=== PATIENT | male | born 1965 | race Caucasian/White ===

== ENCOUNTER 2017-01-03 04:46 | Emergency (ER) | payer MEDICAID ==
[~2017-01-03] VITALS: Ht 182.9 cm; Wt 60.0 kg
[2017-01-03 04:49] VITALS: Ht 182.9 cm; Wt 60.0 kg
[2017-01-03] MEDS ORDERED: HYDROCODONE/APAP (5/325) TAB PO ONE (06:30)
--- NOTE | 2017-01-03 07:00 | ERD ---
ER Documentation Chief Complaint Date/Time DATE: 01/03/17 TIME: 06:59 Chief Complaint PATTERSON X2 DAYS. +NAUSEA AND DIZZINESS HPI This a 51-year-old male who presents to the emergency department today for headache for the past 2 days. Patient states he also feels some dizziness. States that he has had these intermittent headaches for the past 2 years but has been worse over the past couple of days. States that he was given sumatriptan 2 years ago at all of you but was never diagnosed with migraines. Denies any fevers or chills, nausea. Denies any light sensitivity however he states he has sensitivity to noise. States the pain is located on the left side of his head. ROS All systems reviewed and are negative except as per history of present illness. Medications Home Meds Active Scripts Naproxen* (Naprosyn*) 500 Mg Tablet, 500 MG PO BID Y for PAIN AND/OR INFLAMMATION, #30 TAB Prov:MATTEO SUN PA-C 01/03/17 Hydrocodone/Acetaminophen (Sigel 5-325 Tablet) 1 Each Tablet, 1 TAB PO Q6H Y for PAIN, #10 TAB Prov:MATTEO SUN PA-C 01/03/17 Allergies Allergies: Coded Allergies: No Known Allergy (Unverified , 01/03/17) PMhx/Soc Medical and Surgical Hx: pt denies Medical Hx, pt denies Surgical Hx Hx Alcohol Use: Yes Hx Substance Use: No Hx Tobacco Use: Yes Smoking Status: Current every day smoker Physical Exam Vitals Vital Signs Date Time Temp Pulse Resp B/P Pulse Ox O2 Delivery O2 Flow Rate FiO2 01/03/17 04:49 98.0 76 20 142/62 98 Physical Exam Const: No acute distress Head: Atraumatic Eyes: Normal Conjunctiva. PERRLA. EOM intact. ENT: Normal External Ears, Nose and Mouth. Neck: Full range of motion..~ No meningismus. Resp: Clear to auscultation bilaterally Cardio: Regular rate and rhythm, no murmurs Skin: No petechiae or rashes Back: No midline or flank tenderness Ext: No cyanosis, or edema Neur: Awake and alert. No focal neurologic deficits. No gait ataxia. Psych: Normal Mood and Affect Results 24 hrs Current Medications Medications (Trade) Dose Ordered Sig/Malcom Route PRN Reason Start Time Stop Time Status Last Admin Dose Admin Acetaminophen/ Hydrocodone Bitart (Sigel (5/325)) 1 tab ONCE ONCE PO 01/03/17 06:30 01/03/17 06:31 DC 01/03/17 06:37 Ketorolac Tromethamine 30 mg 30 mg ONCE STAT IV 01/03/17 07:27 01/03/17 07:29 DC 01/03/17 07:41 Sodium Chloride (NS) 1,000 ml @ 1,000 mls/hr Q1H ONCE IV 01/03/17 07:30 01/03/17 08:29 DC 01/03/17 07:40 Diphenhydramine HCl (Benadryl) 25 mg ONCE ONCE IV 01/03/17 07:30 01/03/17 07:31 DC 01/03/17 07:40 Metoclopramide HCl (Reglan) 10 mg ONCE ONCE IV 01/03/17 07:30 01/03/17 07:31 DC 01/03/17 07:40 DIAGNOSTIC IMAGING REPORT Patient: BRAYAN BARBOSA : 1965 Age: 51 Sex: M MR #: [id number] DOS: 01/03/17 0000 Ordering MD: MATTEO SUN PA-C Location: [facility] Room/Bed: PROCEDURE: CT Brain without contrast. CLINICAL INDICATION: intermittant PATTERSON x 2 years TECHNIQUE: CT scan of the brain was performed on a multidetector high- resolution CT scan. Axial imaging was obtained of the brain without contrast administration. Coronal and sagittal reformatted images were obtained from the axial source images. Standard CT scan of the head without contrast protocols were performed. The total exam CTDI equals 45.01 mGy and the total exam DLP equals 720.23 mGy- cm. One or more of the following dose reduction techniques were used: - Automated exposure control. - Adjustment of the mA and/or kV according to patient size. Use of iterative reconstruction technique. COMPARISON: None. FINDINGS: The patient is slightly rotated to the left and tilted to the right there is a giant cisterna magna. The ventricular system and peripheral CSF spaces are otherwise unremarkable without evidence of intracranial masses hemorrhages or midline shift. The edmondson-white matter junction is unremarkable. The paranasal sinuses and mastoids are unremarkable. The bones and calvarium are intact. IMPRESSION: No evidence of intracranial masses hemorrhages or midline shift. RPTAT:AAJJ Physician Elfego Date Time Electronically viewed and signed by Enedina Parks Physician on 01/03/2017 07:04 BM/ CC: MATTEO SUN PA-C Procedures/MDM This a 51-year-old male who presents to the emergency department today complaining of intermittent headaches for the past 2 years however worsened over the past 2 days. Patient had indicated that he has never had imaging done of his head. Given the duration of symptoms and the patient's age I did obtain a head CT scan. Head CT noncontrast shows there is a giant cisterna magna. The ventricular system and peripheral CSF spaces are otherwise unremarkable without evidence of intracranial masses, hemorrhage or midline shift. Patient was given Sigel in the emergency department and patient reported continued pain. Therefore I did give him a migraine cocktail of Toradol, Reglan , Benadryl as well as a liter of fluids patient reported feeling better. Patient symptoms at this time most consistent with headache versus migraine type headache. Low suspicion for acute fracture, hemorrhage, mass, abscess At this time the patient is stable for discharge and outpatient management. Patient should follow up with their PCP in the next 1-2 days. I have explained to the patient he should follow-up with a neurology specialist. I explained to the patient that he does need to follow-up with the doctor that gave him the sumatriptan. I have given him a list of resources. They may return to the emergency department sooner for any persistent or worsening of symptoms. Patient understood and agreed with the plan. Discussed the patient with Dr. Velarde and he is in agreement with the plan Departure Diagnosis: Primary Impression: Headache Headache type: unspecified Headache chronicity pattern: episodic headache Intractability: not intractable Qualified Code: R51 - Nonintractable episodic headache, unspecified headache type Condition: Fair MATTEO SUN PA-C January 03, 2017 07:00
--- NOTE | 2017-01-03 07:05 | RADRPT ---
PROCEDURE: CT Brain without contrast. CLINICAL INDICATION: intermittant PATTERSON x 2 years TECHNIQUE: CT scan of the brain was performed on a multidetector high-resolution CT scan. Axial im aging was obtained of the brain without contrast administration. Coronal and sagittal reformatted i mages were obtained from the axial source images. Standard CT scan of the head without contrast prot ocols were performed. The total exam CTDI equals 45.01 mGy and the total exam DLP equals 720.23 mGy-cm. One or more of the following dose reduction techniques were used: - Automated exposure control. - Adjustment of the mA and/or kV according to patient size. Use of iterative reconstruction technique. COMPARISON: None. FINDINGS: The patient is slightly rotated to the left and tilted to the right there is a giant cisterna magna. The ventricular system and peripheral CSF spaces are otherwise unremarkable without evidence of in tracranial masses hemorrhages or midline shift. The edmondson-white matter junction is unremarkable. The paranasal sinuses and mastoids are unremarkable. The bones and calvarium are intact. IMPRESSION: No evidence of intracranial masses hemorrhages or midline shift. RPTAT:AAJJ Physician Elfego Date Time Electronically viewed and signed by Physician Elfego on 01/03/2017 07:04 /
[2017-01-03] MEDS ORDERED: KETOROLAC 30 MG INJ IV STA (07:27)
[2017-01-03] MEDS ORDERED: METOCLOPRAMIDE 10 MG INJ IV ONE (07:30)
[2017-01-03] MEDS ORDERED: DIPHENHYDRAMINE 50 MG INJ IV ONE (07:30)
[2017-01-03] MEDS ORDERED: SOD CHLORIDE 0.9% 1,000 ML IV ONE (07:30)
[2017-01-03] MEDS ORDERED: NAPR-260 PO (08:56)
[2017-01-03] MEDS ORDERED: HYDR-906 PO (08:56)
[2017-01-03 09:18] VITALS: BP 135/58; PULSE 72; RESP 20; TEMP 98.5
== END 2017-01-03 09:20 | disposition home or self-care (01) ==
LOC: FTE 04:46
DX: R51 Headache (principal); F17.210 Nicotine dependence, cigarettes, uncomplicated
CPT/HCPCS: 70450; 96374; 96375; J1200; J1885; J2765; J7030; Z7502; Z7610

== ENCOUNTER 2017-03-24 19:31 | Emergency (ER) | payer MEDICAID, OTHER ==
[~2017-03-24] VITALS: Ht 182.9 cm; Wt 57.0 kg
[~2017-03-24 19:31] MED LIST: HYDR-906 PO; NAPR-260 PO
[2017-03-24 19:36] VITALS: Ht 182.9 cm; Wt 57.0 kg
[2017-03-24 20:31] LABS: WHITE BLOOD COUNT 4.9 10^3/ul (4.8-10.8)
[2017-03-24 20:32] LABS: BASOPHIL # 0.1 10^3/ul (0.0-0.1); BASOPHILS % 1.4 % (0.0-2.0); EOSINOPHILS # 0.1 10^3/ul (0.0-0.5); EOSINOPHILS % 2.2 % (0.0-7.0); HEMATOCRIT 44.5 % (42.0-52.0); HEMOGLOBIN 14.9 g/dl (14.0-18.0); LYMPHOCYTES # 1.3 10^3/ul (0.8-2.9); LYMPHOCYTES % 27.3 % (15.0-51.0); MEAN CORPUSCULAR HEMOGLOBIN 31.2 pg (29.0-33.0); MEAN CORPUSCULAR HGB CONC 33.5 g/dl (32.0-37.0); MEAN CORPUSCULAR VOLUME 93.3 fl (82.0-101.0); MEAN PLATELET VOLUME 10.2 fl (7.4-10.4); MONOCYTE # 0.4 10^3/ul (0.3-0.9); MONOCYTES % 8.4 % (0.0-11.0); NEUTROPHILS % 60.5 % (39.0-77.0); PLATELET COUNT 210 10^3/UL (140-415); RED BLOOD COUNT 4.77 10^6/ul (4.70-6.10)
[2017-03-24] MEDS ORDERED: FAMOTIDINE 20 MG TAB PO STA (20:45)
[2017-03-24] MEDS ORDERED: SOD CHLORIDE 0.9% 500 ML IV STA (20:45)
[2017-03-24] MEDS ORDERED: LIDOCAINE/MYLANTA 40 ML BTL PO STA (20:45)
[2017-03-24 20:57] LABS: INR 1.12; PARTIAL THROMBOPLASTIN TIME 26.3 Sec (25.0-35.0); PROTIME 14.4 Sec (12.2-14.2); PT RATIO 1.1
[2017-03-24 21:07] LABS: ANION GAP 17 (8-16); BLOOD UREA NITROGEN 14 mg/dl (7-20); CALCIUM 8.9 mg/dl (8.4-10.2); CARBON DIOXIDE 24 mmol/L (21-31); CHLORIDE 102 mmol/L (97-110); CREATININE 0.73 mg/dl (0.61-1.24); GLUCOSE 85 mg/dl (70-220); POTASSIUM 3.7 mmol/L (3.5-5.1); SODIUM 139 mmol/L (135-144)
[2017-03-24] MEDS ORDERED: IBUPROFEN 800 MG TAB PO ONE (21:30)
[2017-03-24 21:34] LABS: ALBUMIN 4.4 g/dl (3.3-4.9); BILIRUBIN,INDIRECT 0.5 mg/dl (0-1.1); BILIRUBIN,TOTAL 0.5 mg/dl (0.2-1.3); TOTAL PROTEIN 7.4 g/dl (6.1-8.1)
--- NOTE | 2017-03-24 21:35 | RADRPT ---
PROCEDURE: Portable chest x-ray. CLINICAL INDICATION: Chest pain. TECHNIQUE: Portable AP view of the chest. COMPARISON: None. FINDINGS: No pulmonary edema or conolidation is identified. The cardiac silhouette is magnified. No pleural effusion is seen. There is no pneumothorax. IMPRESSION: 1. No evidence of acute cardiopulmonary disease. RPTAT: HTAR .Yeyo Owens MD, MD Date Time Electronically viewed and signed by .Yeyo Owens MD, on 03/24/2017 21:34 .R/
[2017-03-24 21:41] LABS: TROPONIN-I < 0.012 ng/ml (0.00-0.12)
[2017-03-24] MEDS ORDERED: IBUP-1542 PO (22:17)
[2017-03-24] MEDS ORDERED: FAMO20TA18 PO (22:17)
--- NOTE | 2017-03-24 22:23 | ERD ---
ER Documentation Chief Complaint Date/Time DATE: 03/24/17 TIME: 22:19 Chief Complaint chest pain/left arm pain x 3 days HPI 51-year-old male with no significant past medical history complaining of left neck pain radiating down his left arm. This has been going on for several months but worse for the past 4 days. He denies any weakness in the extremity. No recent trauma. He occasionally feels tingling down the side of his arm into the pinky and ring finger. He has no associated chest pain. He does complain of occasional epigastric pain when he gets nervous. However he denies any acid reflux. His abdominal pain is nonradiating, mild, better with food. He denies any NSAID use or Tylenol use. ROS All systems reviewed and are negative except as per history of present illness. Medications Home Meds Active Scripts Ibuprofen* (Ibuprofen*) 600 Mg Tablet, 600 MG PO Q6H Y for PAIN, #30 TAB Prov:YULIYA MONTANO MD 03/24/17 Famotidine* (Famotidine*) 20 Mg Tablet, 20 MG PO BID, #30 TAB Prov:YULIYA MONTANO MD 03/24/17 Discontinued Scripts Naproxen* (Naprosyn*) 500 Mg Tablet, 500 MG PO BID Y for PAIN AND/OR INFLAMMATION, #30 TAB Prov:MATTEO SUN PA-C 01/03/17 Hydrocodone/Acetaminophen ([place] 5-325 Tablet) 1 Each Tablet, 1 TAB PO Q6H Y for PAIN, #10 TAB Prov:MATTEO SUN PA-C 01/03/17 Allergies Allergies: Coded Allergies: No Known Allergy (Unverified , 03/24/17) PMhx/Soc Medical and Surgical Hx: pt denies Medical Hx, pt denies Surgical Hx History of Surgery: No Anesthesia Reaction: No Hx Neurological Disorder: No Hx Respiratory Disorders: No Hx Cardiac Disorders: No Hx Psychiatric Problems: No Hx Miscellaneous Medical Probl: No Hx Alcohol Use: Yes Hx Substance Use: No Hx Tobacco Use: No Smoking Status: Never smoker FmHx Family History: No diabetes Physical Exam Vitals Vital Signs Date Time Temp Pulse Resp B/P Pulse Ox O2 Delivery O2 Flow Rate FiO2 03/24/17 20:03 98.6 59 20 134/84 98 Room Air 7/28/17 19:36 98.2 72 20 117/68 97 Physical Exam Const:, Well-appearing, no apparent distress Head: Atraumatic Eyes: Normal Conjunctiva ENT: Normal External Ears, Nose and Mouth. Neck: Full range of motion..~ No meningismus. No C-spine tenderness. Mild left paraspinal muscle tenderness into the trapezius. Resp: Clear to auscultation bilaterally Cardio: Regular rate and rhythm, no murmurs. 2+ distal pulses Abd: Soft, non tender, non distended. Normal bowel sounds Skin: No petechiae or rashes Back: No midline or flank tenderness Ext: No cyanosis, or edema Neur: Awake and alert and oriented 3, strength and sensations intact in all 4 extremities Psych: Normal Mood and Affect Result Diagram: 03/24/17201403/24/172014 Results 24 hrs Laboratory Tests Test 03/24/17 20:15 White Blood Count 4.910^3/ul Red Blood Count 4.7710^6/ul Hemoglobin 14.9g/dl Hematocrit 44.5% Mean Corpuscular Volume 93.3fl Mean Corpuscular Hemoglobin 31.2pg Mean Corpuscular Hemoglobin Concent 33.5g/dl Red Cell Distribution Width 12.0% Platelet Count 89727^3/UL Mean Platelet Volume 10.2fl Neutrophils % 60.5% Lymphocytes % 27.3% Monocytes % 8.4% Eosinophils % 2.2% Basophils % 1.4% Nucleated Red Blood Cells % 0.0/100WBC Neutrophils # 3.010^3/ul Lymphocytes # 1.310^3/ul Monocytes # 0.410^3/ul Eosinophils # 0.110^3/ul Basophils # 0.110^3/ul Nucleated Red Blood Cells # 0.010^3/ul Prothrombin Time 14.4Sec Prothrombin Time Ratio 1.1 INR International Normalized Ratio 1.12 Activated Partial Thromboplast Time 26.3Sec Sodium Level 139mmol/L Potassium Level 3.7mmol/L Chloride Level 102mmol/L Carbon Dioxide Level 24mmol/L Anion Gap 17 Blood Urea Nitrogen 14mg/dl Creatinine 0.73mg/dl Glucose Level 85mg/dl Calcium Level 8.9mg/dl Total Bilirubin 0.5mg/dl Direct Bilirubin 0.00mg/dl Indirect Bilirubin 0.5mg/dl Aspartate Amino Transf (AST/SGOT) 25IU/L Alanine Aminotransferase (ALT/SGPT) 37IU/L Alkaline Phosphatase 74IU/L Troponin I < 0.012ng/ml Total Protein 7.4g/dl Albumin 4.4g/dl Lipase 61U/L Current Medications Medications (Trade) Dose Ordered Sig/Malcom Route PRN Reason Start Time Stop Time Status Last Admin Dose Admin Sodium Chloride (NS) 500 ml @ 500 mls/hr Q1H STAT IV 03/24/17 20:45 03/24/17 21:44 DC 03/24/17 21:08 Famotidine (Pepcid) 20 mg ONCE STAT PO 03/24/17 20:45 03/24/17 20:47 DC 03/24/17 21:08 Miscellaneous Medication (Gi Cocktail (2)) 40 ml ONCE STAT PO 03/24/17 20:45 03/24/17 20:47 DC 03/24/17 21:08 Ibuprofen (Motrin) 800 mg ONCE ONCE PO 03/24/17 21:30 03/24/17 21:31 DC 03/24/17 21:11 Procedures/MDM EKG: Rate/Rhythm: Sinus bradycardia at 58 QRS, ST, T-waves: Incomplete right bundle branch block, no changes consistent with acute ischemia Impression: No evidence of ischemia or arrhythmia Labs CBC: no anemia or evidence of infection CMP: No evidence of electrolyte abnormality, renal failure, hypoglycemia, liver failure, or biliary obstruction Lipase: no evidence of pancreatitis Troponin within normal limits Chest x-ray shows no acute abnormalities MDM Patients symptoms are consistent with cervical radiculopathy. With regard to his epigastric pain, I do not suspect acute coronary syndrome, aortic dissection , pulmonary embolism. The patient was given a GI cocktail, Pepcid, and ibuprofen with significant improvement of his symptoms. All his labs and imaging were normal. I think the patient is stable for discharge at this time with follow-up with his PCP if his pain continues. Patient's blood pressure was elevated (>120/80) but appears stable without evidence of hypertension emergency or urgency. The patient was counseled about the risks of hypertension and urged to pursue outpatient monitoring and therapy within a week with their primary care physician. Departure Diagnosis: Primary Impression: Cervical radiculopathy Additional Impression: Epigastric abdominal pain Condition: Stable Patient Instructions: Radiculopathy, Cervical [facility] Usted se harrison hecho un examen mdico de control que le indica que no est en yvette condicin que requiera tratamiento urgente en el Departamento de Emergencia. Un estudio ms profundo y el tratamiento de villaseñor condicin pueden esperar sin ningn riesgo hasta que usted sea atendida/o en el consultorio de villaseñor mdico o yvette cl yarelis. Es responsabilidad suya arreglar yvette sanjeev para el seguimiento del jorge. MANEJO DE CONDICIONES NO URGENTES EN EL FUTURO 1) Si usted tiene un mdico de atencin primaria: Usted debera llamar a villaseñor mdico de atencin primaria antes de venir al departamento de emergencia. Despus de las horas de consultorio, villaseñor doctor o villaseñor asociado/a est disponible por telfono. El mdico o enfermero de denise en el servicio telefnico puede asesorarle por shane medio para atender el problema, o jorge contrario se puede programar yvette sanjeev. 2) Si usted no tiene un mdico de atencin primaria: Llame al mdico o clnica de referencia que aparece abajo charo las horas de consultorio para hacer yvette sanjeev para que le vean. CLINICAS: [facility] [phone] [facility] [phone] [facility] [phone] [facility] [phone] [place] [phone] [facility]. [phone] MD Mar 24, 2017 22:23
[2017-03-24 22:36] VITALS: BP 113/75; PULSE 57; RESP 18; TEMP 98.6
== END 2017-03-24 22:45 | disposition home or self-care (01) ==
LOC: E/R 19:31
DX: M54.12 Radiculopathy, cervical region (principal); R10.13 Epigastric pain
CPT/HCPCS: 71010; 80048; 80076; 83690; 84484; 85025; 85610; 85730; J7040; Z7610; 93005

== ENCOUNTER 2017-04-09 03:31 | Emergency (ER) | END 2017-04-09 06:41 | disposition home or self-care (01) | DX: R07.9 Chest pain, unspecified (principal); R40.2252 Coma scale, best verbal response, oriented, at arrival to emergency department; R40.2142 Coma scale, eyes open, spontaneous, at arrival to emergency department; R40.2362 Coma scale, best motor response, obeys commands, at arrival to emergency department | CPT/HCPCS: 36415; 71010; 80048; 83880; 84484; 85025; 85610; 85730; 93005; Z7502; Z7610 ==

== ENCOUNTER 2017-06-23 01:50 | Emergency (ER) | payer SELFPAY ==
[~2017-06-23] VITALS: Ht 177.8 cm; Wt 59.0 kg
[~2017-06-23 01:50] MED LIST changes: +FAMO20TA18 PO; -HYDR-906 PO; +IBUP-1542 PO; -NAPR-260 PO; +RANI150T9 PO
[2017-06-23 01:53] VITALS: Ht 177.8 cm; Wt 59.0 kg
[2017-06-23] MEDS ORDERED: ONDANSETRON (ODT) 4 MG TAB ODT STA (03:21)
[2017-06-23] MEDS ORDERED: HYDROCODONE/APAP (5/325) TAB PO ONE (03:30)
[2017-06-23] MEDS ORDERED: KETOROLAC 30 MG INJ IV STA (05:17)
[2017-06-23] MEDS ORDERED: SOD CHLORIDE 0.9% 500 ML IV ONE (05:30)
[2017-06-23] MEDS ORDERED: DIPHENHYDRAMINE 50 MG INJ IV ONE (05:30)
[2017-06-23] MEDS ORDERED: MECLIZINE 12.5 MG TAB PO ONE (05:30)
[2017-06-23] MEDS ORDERED: METOCLOPRAMIDE 10 MG INJ IV ONE (05:30)
[2017-06-23] MEDS ORDERED: FIORICET PO (06:42)
[2017-06-23] MEDS ORDERED: ONDA4TAB8 PO (06:42)
[2017-06-23] MEDS ORDERED: NAPR-260 PO (06:42)
[2017-06-23] MEDS ORDERED: MECL12.574 PO (06:42)
--- NOTE | 2017-06-23 06:50 | ERD ---
ER Documentation Chief Complaint Chief Complaint headache x 2 days HPI 48-year-old male who presents the emergency department today complaining of headache that started earlier today. States the pain is on the right side of his head. He has some nausea but no vomiting. She has taken natural remedies but has not taken any medication for the pain. States he did not follow-up after the last time he was here with his headache. States that this headache feels the same just on the other side. Denies any dizziness, neck pain, fevers or chills ROS All systems reviewed and are negative except as per history of present illness. Medications Home Meds Active Scripts Meclizine Hcl* (Antivert*) 12.5 Mg Tab, 12.5 MG PO Q6H Y for DIZZINESS, #20 TAB Prov:MATTEO SUN PA-C 06/23/17 Naproxen* (Naprosyn*) 500 Mg Tablet, 500 MG PO BID Y for PAIN AND/OR INFLAMMATION, #30 TAB Prov:MATTEO SUN PA-C 06/23/17 Acetamin/Butalbital/Caffeine* (Fioricet*) [id number] Tab, 1 TAB PO Q6H Y for PAIN, #30 TAB Prov:MATTEO SUN PA-C 06/23/17 Ondansetron Hcl* (Zofran*) 4 Mg Tablet, 4 MG PO Q6H for NAUSEA AND/OR VOMITING, #30 TAB Prov:MATTEO SUN PA-C 06/23/17 Ranitidine Hcl* (Zantac*) 150 Mg Tablet, 150 MG PO BID, #60 TAB Prov:FATOU VEGA DO 04/09/17 Ibuprofen* (Ibuprofen*) 600 Mg Tablet, 600 MG PO Q6H Y for PAIN, #30 TAB Prov:YULIYA MONTANO MD 03/24/17 Famotidine* (Famotidine*) 20 Mg Tablet, 20 MG PO BID, #30 TAB Prov:YULIYA MONTANO MD 03/24/17 Allergies Allergies: Coded Allergies: No Known Allergy (Unverified , 03/24/17) PMhx/Soc History of Surgery: No Anesthesia Reaction: No Hx Neurological Disorder: No Hx Respiratory Disorders: No Hx Cardiac Disorders: No Hx Psychiatric Problems: No Hx Miscellaneous Medical Probl: No Hx Alcohol Use: No Hx Substance Use: No Hx Tobacco Use: No Smoking Status: Never smoker Physical Exam Vitals Vital Signs Date Time Temp Pulse Resp B/P Pulse Ox O2 Delivery O2 Flow Rate FiO2 06/23/17 01:53 97.7 57 20 120/73 98 Physical Exam Const: NAD Head: Atraumatic Eyes: Normal Conjunctiva. PERRLA. EOM intact. ENT: Normal External Ears, Nose and Mouth. Neck: Full range of motion..~ No meningismus. Resp: Clear to auscultation bilaterally Cardio: Regular rate and rhythm, no murmurs Abd: Soft, non tender, non distended. Normal bowel sounds Skin: No petechiae or rashes Back: No midline or flank tenderness Ext: No cyanosis, or edema Neur: Awake and alert with no focal neurologic deficits. No gait ataxia. No pronator drift. Psych: Normal Mood and Affect Results 24 hrs Current Medications Medications (Trade) Dose Ordered Sig/Malcom Route PRN Reason Start Time Stop Time Status Last Admin Dose Admin Ondansetron HCl (Zofran Odt) 4 mg ONCE STAT ODT 06/23/17 03:21 06/23/17 03:23 DC 06/23/17 03:38 Acetaminophen/ Hydrocodone Bitart ([place] (5/325)) 1 tab ONCE ONCE PO 06/23/17 03:30 06/23/17 03:31 DC 06/23/17 03:38 Meclizine HCl 25 mg 25 mg ONCE ONCE PO 06/23/17 05:30 06/23/17 05:31 DC 06/23/17 05:22 Sodium Chloride (NS) 500 ml @ 500 mls/hr Q1H ONCE IV 06/23/17 05:30 06/23/17 06:29 DC 06/23/17 05:33 Metoclopramide HCl (Reglan) 10 mg ONCE ONCE IV 06/23/17 05:30 06/23/17 05:31 DC 06/23/17 05:33 Ketorolac Tromethamine (Toradol) 30 mg ONCE STAT IV 06/23/17 05:17 06/23/17 05:19 DC 06/23/17 05:33 Diphenhydramine HCl (Benadryl) 25 mg ONCE ONCE IV 06/23/17 05:30 06/23/17 05:31 DC 06/23/17 05:33 Procedures/MDM This is a 51-year-old male presents to the emergency department today complaining of a headache on the right side of his head. I did see this patient in December 2016 with the same complaint. Patient had a negative head CT scan at that time however he had a large magna cisterna was instructed to follow -up with neurology specialist. He did not do this. Patient is afebrile and otherwise well-appearing. He has no gait ataxia no focal neurologic deficits and no pronator drift. Did not feel he requires a repeat head CT scan. He has had no trauma. I have low suspicion for acute hemorrhage, mass, abscess, meningitis. Patient was given [place] here in the emergency department and stated that his headache improved but it made him feel dizzy. Patient was given a migraine cocktail at that time of Toradol, Reglan, half liter of IV fluids. He was also given meclizine. Patient reported feeling better and was requesting to go home. Patient was instructed to follow-up with his primary care doctor and follow-up with neurology specialist. Symptoms at this time is consistent with headache. He was given a prescription for Fioricet, meclizine, Naprosyn and Zofran. At this time the patient is stable for discharge and outpatient management. Patient should follow up with their PCP in the next 1-2 days. They may return to the emergency department sooner for any persistent or worsening of symptoms. Patient understood and agreed with the plan. Discussed the patient with Dr. Ashton and he is in agreement with the plan. Departure Diagnosis: Primary Impression: Headache Headache type: unspecified Headache chronicity pattern: episodic headache Intractability: not intractable Qualified Code: R51 - Nonintractable episodic headache, unspecified headache type Condition: Fair Patient Instructions: Self-Care for Headaches Referrals: SAUL SANTIAGO MD,KARISHMA VELASQUEZ,JASSON CONLEY MD, MD,BOSTON WILDER,JOURDAN ADDISON,JOSE MAC,DAVON TEAGUE MD,LOLI MCMAHAN,MAKEDA SANTIAGO MD [facility] Usted se harrison hecho un examen mdico de control que le indica que no est en yvette condicin que requiera tratamiento urgente en el Departamento de Emergencia. Un estudio ms profundo y el tratamiento de villaseñor condicin pueden esperar sin ningn riesgo hasta que usted sea atendida/o en el consultorio de villaseñor mdico o yvette cl yarelis. Es responsabilidad suya arreglar yvette navin para el seguimiento del jorge. MANEJO DE CONDICIONES NO URGENTES EN EL FUTURO 1) Si usted tiene un mdico de atencin primaria: Usted debera llamar a villaseñor mdico de atencin primaria antes de venir al departamento de emergencia. Despus de las horas de consultorio, villaseñor doctor o villaseñor asociado/a est disponible por telfono. El mdico o enfermero de denise en el servicio telefnico puede asesorarle por shane medio para atender el problema, o jorge contrario se puede programar yvette navin. 2) Si usted no tiene un mdico de atencin primaria: Llame al mdico o clnica de referencia que aparece abajo charo las horas de consultorio para hacer yvette navin para que le vean. CLINICAS: [facility] [phone] [facility] [phone] [facility] [phone] [facility]. [facility] [phone] [facility]. [place] [phone] [facility]. [phone] [address] Additional Instructions: Llame al doctor MAANA y vinay yvette NAVIN PARA DENTRO DE 1-2 NOE.Dgale a la secretaria que nosotros le instruimos hacer esta navin.Avise o llame si villaseñor condicin se empeora antes de la navin. Regresa aqui si peor o no mejor. Take Fioricet for severe pain otherwise take Naprosyn or Tylenol or Motrin. Take Zofran for nausea or vomiting. Take meclizine for dizziness. MATTEO SUN PA-C Jun 23, 2017 06:50
--- NOTE | 2017-06-23 06:50 | ERD ---
ER Documentation Chief Complaint Chief Complaint headache x 2 days HPI 48-year-old male who presents the emergency department today complaining of headache that started earlier today. States the pain is on the right side of his head. He has some nausea but no vomiting. She has taken natural remedies but has not taken any medication for the pain. States he did not follow-up after the last time he was here with his headache. States that this headache feels the same just on the other side. Denies any dizziness, neck pain, fevers or chills ROS All systems reviewed and are negative except as per history of present illness. Medications Home Meds Active Scripts Meclizine Hcl* (Antivert*) 12.5 Mg Tab, 12.5 MG PO Q6H Y for DIZZINESS, #20 TAB Prov:MATTEO SUN PA-C 06/23/17 Naproxen* (Naprosyn*) 500 Mg Tablet, 500 MG PO BID Y for PAIN AND/OR INFLAMMATION, #30 TAB Prov:MATTEO SUN PA-C 06/23/17 Acetamin/Butalbital/Caffeine* (Fioricet*) [id number] Tab, 1 TAB PO Q6H Y for PAIN, #30 TAB Prov:MATTEO SUN PA-C 06/23/17 Ondansetron Hcl* (Zofran*) 4 Mg Tablet, 4 MG PO Q6H for NAUSEA AND/OR VOMITING, #30 TAB Prov:MATTEO SUN PA-C 06/23/17 Ranitidine Hcl* (Zantac*) 150 Mg Tablet, 150 MG PO BID, #60 TAB Prov:FATOU VEGA DO 04/09/17 Ibuprofen* (Ibuprofen*) 600 Mg Tablet, 600 MG PO Q6H Y for PAIN, #30 TAB Prov:YULIYA MONTANO MD 03/24/17 Famotidine* (Famotidine*) 20 Mg Tablet, 20 MG PO BID, #30 TAB Prov:YULIYA MONTANO MD 03/24/17 Allergies Allergies: Coded Allergies: No Known Allergy (Unverified , 03/24/17) PMhx/Soc History of Surgery: No Anesthesia Reaction: No Hx Neurological Disorder: No Hx Respiratory Disorders: No Hx Cardiac Disorders: No Hx Psychiatric Problems: No Hx Miscellaneous Medical Probl: No Hx Alcohol Use: No Hx Substance Use: No Hx Tobacco Use: No Smoking Status: Never smoker Physical Exam Vitals Vital Signs Date Time Temp Pulse Resp B/P Pulse Ox O2 Delivery O2 Flow Rate FiO2 06/23/17 01:53 97.7 57 20 120/73 98 Physical Exam Const: NAD Head: Atraumatic Eyes: Normal Conjunctiva. PERRLA. EOM intact. ENT: Normal External Ears, Nose and Mouth. Neck: Full range of motion..~ No meningismus. Resp: Clear to auscultation bilaterally Cardio: Regular rate and rhythm, no murmurs Abd: Soft, non tender, non distended. Normal bowel sounds Skin: No petechiae or rashes Back: No midline or flank tenderness Ext: No cyanosis, or edema Neur: Awake and alert with no focal neurologic deficits. No gait ataxia. No pronator drift. Psych: Normal Mood and Affect Results 24 hrs Current Medications Medications (Trade) Dose Ordered Sig/Malcom Route PRN Reason Start Time Stop Time Status Last Admin Dose Admin Ondansetron HCl (Zofran Odt) 4 mg ONCE STAT ODT 06/23/17 03:21 06/23/17 03:23 DC 06/23/17 03:38 Acetaminophen/ Hydrocodone Bitart (Wilton (5/325)) 1 tab ONCE ONCE PO 06/23/17 03:30 06/23/17 03:31 DC 06/23/17 03:38 Meclizine HCl 25 mg 25 mg ONCE ONCE PO 06/23/17 05:30 06/23/17 05:31 DC 06/23/17 05:22 Sodium Chloride (NS) 500 ml @ 500 mls/hr Q1H ONCE IV 06/23/17 05:30 06/23/17 06:29 DC 06/23/17 05:33 Metoclopramide HCl (Reglan) 10 mg ONCE ONCE IV 06/23/17 05:30 06/23/17 05:31 DC 06/23/17 05:33 Ketorolac Tromethamine (Toradol) 30 mg ONCE STAT IV 06/23/17 05:17 06/23/17 05:19 DC 06/23/17 05:33 Diphenhydramine HCl (Benadryl) 25 mg ONCE ONCE IV 06/23/17 05:30 06/23/17 05:31 DC 06/23/17 05:33 Procedures/MDM This is a 51-year-old male presents to the emergency department today complaining of a headache on the right side of his head. I did see this patient in December 2016 with the same complaint. Patient had a negative head CT scan at that time however he had a large magna cisterna was instructed to follow -up with neurology specialist. He did not do this. Patient is afebrile and otherwise well-appearing. He has no gait ataxia no focal neurologic deficits and no pronator drift. Did not feel he requires a repeat head CT scan. He has had no trauma. I have low suspicion for acute hemorrhage, mass, abscess, meningitis. Patient was given Wilton here in the emergency department and stated that his headache improved but it made him feel dizzy. Patient was given a migraine cocktail at that time of Toradol, Reglan, half liter of IV fluids. He was also given meclizine. Patient reported feeling better and was requesting to go home. Patient was instructed to follow-up with his primary care doctor and follow-up with neurology specialist. Symptoms at this time is consistent with headache. He was given a prescription for Fioricet, meclizine, Naprosyn and Zofran. At this time the patient is stable for discharge and outpatient management. Patient should follow up with their PCP in the next 1-2 days. They may return to the emergency department sooner for any persistent or worsening of symptoms. Patient understood and agreed with the plan. Discussed the patient with Dr. Ashton and he is in agreement with the plan. Departure Diagnosis: Primary Impression: Headache Headache type: unspecified Headache chronicity pattern: episodic headache Intractability: not intractable Qualified Code: R51 - Nonintractable episodic headache, unspecified headache type Condition: Fair Patient Instructions: Self-Care for Headaches Referrals: SAUL SANTIAGO MD,KARISHMA VELASQUEZ,JASSON CONLEY MD, MD,BOSTON WILDER,JOURDAN ADDISON,JOSE MAC,DAVON TEAGUE MD,LOLI MCMAHAN,MAKEDA [facility]ANT[facility]AGO [facility] Usted se harrison hecho un examen mdico de control que le indica que no est en yvette condicin que requiera tratamiento urgente en el Departamento de Emergencia. Un estudio ms profundo y el tratamiento de villaseñor condicin pueden esperar sin ningn riesgo hasta que usted sea atendida/o en el consultorio de villaseñor mdico o yvette cl yarelis. Es responsabilidad suya arreglar yvette navin para el seguimiento del jorge. MANEJO DE CONDICIONES NO URGENTES EN EL FUTURO 1) Si usted tiene un mdico de atencin primaria: Usted debera llamar a villaseñor mdico de atencin primaria antes de venir al departamento de emergencia. Despus de las horas de consultorio, villaseñor doctor o villaseñor asociado/a est disponible por telfono. El mdico o enfermero de denise en el servicio telefnico puede asesorarle por shane medio para atender el problema, o jorge contrario se puede programar yvette navin. 2) Si usted no tiene un mdico de atencin primaria: Llame al mdico o clnica de referencia que aparece abajo charo las horas de consultorio para hacer yvette navin para que le vean. CLINICAS: [facility] [phone] [facility] [phone] [facility]. [facility] [phone] [facility]. [facility] [phone] [facility]. [place] [phone] [facility]. [phone] [address] Additional Instructions: Llame al doctor MAANA y vinay yvette NAVIN PARA DENTRO DE 1-2 NOE.Dgale a la secretaria que nosotros le instruimos hacer esta navin.Avise o llame si villaseñor condicin se empeora antes de la navin. Regresa aqui si peor o no mejor. Take Fioricet for severe pain otherwise take Naprosyn or Tylenol or Motrin. Take Zofran for nausea or vomiting. Take meclizine for dizziness. MATTEO SUN PA-C Jun 23, 2017 06:50
--- NOTE | 2017-06-23 06:50 | ERD ---
ER Documentation Chief Complaint Chief Complaint headache x 2 days HPI 48-year-old male who presents the emergency department today complaining of headache that started earlier today. States the pain is on the right side of his head. He has some nausea but no vomiting. She has taken natural remedies but has not taken any medication for the pain. States he did not follow-up after the last time he was here with his headache. States that this headache feels the same just on the other side. Denies any dizziness, neck pain, fevers or chills ROS All systems reviewed and are negative except as per history of present illness. Medications Home Meds Active Scripts Meclizine Hcl* (Antivert*) 12.5 Mg Tab, 12.5 MG PO Q6H Y for DIZZINESS, #20 TAB Prov:MATTEO SUN PA-C 06/23/17 Naproxen* (Naprosyn*) 500 Mg Tablet, 500 MG PO BID Y for PAIN AND/OR INFLAMMATION, #30 TAB Prov:MATTEO SUN PA-C 06/23/17 Acetamin/Butalbital/Caffeine* (Fioricet*) [id number] Tab, 1 TAB PO Q6H Y for PAIN, #30 TAB Prov:MATTEO SUN PA-C 06/23/17 Ondansetron Hcl* (Zofran*) 4 Mg Tablet, 4 MG PO Q6H for NAUSEA AND/OR VOMITING, #30 TAB Prov:MATTEO SUN PA-C 06/23/17 Ranitidine Hcl* (Zantac*) 150 Mg Tablet, 150 MG PO BID, #60 TAB Prov:FATOU VEGA DO 04/09/17 Ibuprofen* (Ibuprofen*) 600 Mg Tablet, 600 MG PO Q6H Y for PAIN, #30 TAB Prov:YULIYA MONTANO MD 03/24/17 Famotidine* (Famotidine*) 20 Mg Tablet, 20 MG PO BID, #30 TAB Prov:YULIYA MONTANO MD 03/24/17 Allergies Allergies: Coded Allergies: No Known Allergy (Unverified , 03/24/17) PMhx/Soc History of Surgery: No Anesthesia Reaction: No Hx Neurological Disorder: No Hx Respiratory Disorders: No Hx Cardiac Disorders: No Hx Psychiatric Problems: No Hx Miscellaneous Medical Probl: No Hx Alcohol Use: No Hx Substance Use: No Hx Tobacco Use: No Smoking Status: Never smoker Physical Exam Vitals Vital Signs Date Time Temp Pulse Resp B/P Pulse Ox O2 Delivery O2 Flow Rate FiO2 06/23/17 01:53 97.7 57 20 120/73 98 Physical Exam Const: NAD Head: Atraumatic Eyes: Normal Conjunctiva. PERRLA. EOM intact. ENT: Normal External Ears, Nose and Mouth. Neck: Full range of motion..~ No meningismus. Resp: Clear to auscultation bilaterally Cardio: Regular rate and rhythm, no murmurs Abd: Soft, non tender, non distended. Normal bowel sounds Skin: No petechiae or rashes Back: No midline or flank tenderness Ext: No cyanosis, or edema Neur: Awake and alert with no focal neurologic deficits. No gait ataxia. No pronator drift. Psych: Normal Mood and Affect Results 24 hrs Current Medications Medications (Trade) Dose Ordered Sig/Malcom Route PRN Reason Start Time Stop Time Status Last Admin Dose Admin Ondansetron HCl (Zofran Odt) 4 mg ONCE STAT ODT 06/23/17 03:21 06/23/17 03:23 DC 06/23/17 03:38 Acetaminophen/ Hydrocodone Bitart (Sharples (5/325)) 1 tab ONCE ONCE PO 06/23/17 03:30 06/23/17 03:31 DC 06/23/17 03:38 Meclizine HCl 25 mg 25 mg ONCE ONCE PO 06/23/17 05:30 06/23/17 05:31 DC 06/23/17 05:22 Sodium Chloride (NS) 500 ml @ 500 mls/hr Q1H ONCE IV 06/23/17 05:30 06/23/17 06:29 DC 06/23/17 05:33 Metoclopramide HCl (Reglan) 10 mg ONCE ONCE IV 06/23/17 05:30 06/23/17 05:31 DC 06/23/17 05:33 Ketorolac Tromethamine (Toradol) 30 mg ONCE STAT IV 06/23/17 05:17 06/23/17 05:19 DC 06/23/17 05:33 Diphenhydramine HCl (Benadryl) 25 mg ONCE ONCE IV 06/23/17 05:30 06/23/17 05:31 DC 06/23/17 05:33 Procedures/MDM This is a 51-year-old male presents to the emergency department today complaining of a headache on the right side of his head. I did see this patient in December 2016 with the same complaint. Patient had a negative head CT scan at that time however he had a large magna cisterna was instructed to follow -up with neurology specialist. He did not do this. Patient is afebrile and otherwise well-appearing. He has no gait ataxia no focal neurologic deficits and no pronator drift. Did not feel he requires a repeat head CT scan. He has had no trauma. I have low suspicion for acute hemorrhage, mass, abscess, meningitis. Patient was given Sharples here in the emergency department and stated that his headache improved but it made him feel dizzy. Patient was given a migraine cocktail at that time of Toradol, Reglan, half liter of IV fluids. He was also given meclizine. Patient reported feeling better and was requesting to go home. Patient was instructed to follow-up with his primary care doctor and follow-up with neurology specialist. Symptoms at this time is consistent with headache. He was given a prescription for Fioricet, meclizine, Naprosyn and Zofran. At this time the patient is stable for discharge and outpatient management. Patient should follow up with their PCP in the next 1-2 days. They may return to the emergency department sooner for any persistent or worsening of symptoms. Patient understood and agreed with the plan. Discussed the patient with Dr. Ashton and he is in agreement with the plan. Departure Diagnosis: Primary Impression: Headache Headache type: unspecified Headache chronicity pattern: episodic headache Intractability: not intractable Qualified Code: R51 - Nonintractable episodic headache, unspecified headache type Condition: Fair Patient Instructions: Self-Care for Headaches Referrals: SAUL SANTIAGO MD,KARISHMA VELASQUEZ,JASSON CONLEY MD, MD,BOSTON WILDER,JOURDAN ADDISON,JOSE MAC,DAVON TEAGUE MD,LOLI MCMAHAN,MAKEDA SANTIAGO [facility] Usted se harrison hecho un examen mdico de control que le indica que no est en yvette condicin que requiera tratamiento urgente en el Departamento de Emergencia. Un estudio ms profundo y el tratamiento de villaseñor condicin pueden esperar sin ningn riesgo hasta que usted sea atendida/o en el consultorio de villaseñor mdico o yvette cl yarelis. Es responsabilidad suya arreglar yvette navin para el seguimiento del jorge. MANEJO DE CONDICIONES NO URGENTES EN EL FUTURO 1) Si usted tiene un mdico de atencin primaria: Usted debera llamar a villaseñor mdico de atencin primaria antes de venir al departamento de emergencia. Despus de las horas de consultorio, villaseñor doctor o villaseñor asociado/a est disponible por telfono. El mdico o enfermero de denise en el servicio telefnico puede asesorarle por shane medio para atender el problema, o jorge contrario se puede programar yvette navin. 2) Si usted no tiene un mdico de atencin primaria: Llame al mdico o clnica de referencia que aparece abajo charo las horas de consultorio para hacer yvette navin para que le vean. CLINICAS: [facility] [phone] [facility] [facility] [phone] [facility] [facility] [phone] [facility]. [facility] [phone] [facility]. [place] [phone] [facility] [phone] [address] Additional Instructions: Llame al doctor MAANA y vinay yvette NAVIN PARA DENTRO DE 1-2 NOE.Dgale a la secretaria que nosotros le instruimos hacer esta navin.Avise o llame si villaseñor condicin se empeora antes de la navin. Regresa aqui si peor o no mejor. Take Fioricet for severe pain otherwise take Naprosyn or Tylenol or Motrin. Take Zofran for nausea or vomiting. Take meclizine for dizziness. MATTEO SUN PA-C Jun 23, 2017 06:50
[2017-06-23 06:52] VITALS: BP 125/76; PULSE 72; RESP 19; TEMP 98.5
== END 2017-06-23 06:56 | disposition home or self-care (01) ==
LOC: FTE 01:50
DX: R51 Headache (principal)
CPT/HCPCS: 96374; 96375; 99284; J1200; J1885; J2765; J7040